=== PATIENT | male | born 1965 | race Hispanic/Latino ===

== ENCOUNTER 2017-11-17 07:31 | Day surgery (SDC) | payer MEDICAID ==
[~2017-11-17] VITALS: Ht 170.2 cm; Wt 56.2 kg
[~2017-11-17 07:31] MED LIST: CARV3.12 PO; LACT10SO PO; PHEN100C9 PO; SODIUM CHLORIDE 0.9% 1000ML 1,000 ML IV ONE; ZONI100C6 PO
[2017-11-17 07:43] VITALS: BP 129/71
[2017-11-17] MEDS ORDERED: PROPOFOL 10 MG/ML 20ML VIAL IV ONE (09:40)
[2017-11-17 10:07] VITALS: BP 88/49
== END 2017-11-17 10:45 | disposition home or self-care (01) ==
LOC: DAH 07:31
PROVIDERS: ATTEND Internal Medicine Gastroenterology
DX: K29.50 Unspecified chronic gastritis without bleeding (principal); Z79.899 Other long term (current) drug therapy; B96.81 Helicobacter pylori [H. pylori] as the cause of diseases classified elsewhere; K22.8 Other specified diseases of esophagus; I10 Essential (primary) hypertension
CPT/HCPCS: 43239; 88305; 88312; A4606; J2704; J7030